=== PATIENT | female | born 1975 | race Caucasian/White ===

== ENCOUNTER → 2017-01-05 | Outpatient (CLI) | payer BC ==
--- NOTE | 2017-01-05 16:43 | KCIC ---
Bilateral digital screening mammograms with CAD: HISTORY Routine screening COMPARISON Comparison is made to previous examinations dated 01/17/2014 and 02/28/2009. FINDINGS Breast density category B. The skin and nipples show no abnormalities. No abnormal lymph nodes are seen in the axilla. The breast parenchyma shows scattered fibroglandular density with some asymmetric tissue in the upper-outer quadrant of the right breast. This is unchanged. There are no new dominant masses, suspicious calcifications or architectural distortions. IMPRESSION No evidence of malignancy. Recommend routine annual mammographic screening. This study was interpreted with the benefit of Computerized Aided Detection (CAD). Mammography is not 100% sensitive in detecting breast cancer. Therefore, a self breast exam and a clinical breast exam are very important. A negative mammogram does not negate a clinically suspicious finding and should not result in a delay in biopsying a clinically suspicious abnormality. BI-RADS category 2: Benign. This patient's information has been entered into a reminder system for the patient to be notified with the results of this examination and a target date for her next mammograms. Electronically signed by: Ursula Fleming MD (Jan 05, 2017 16:42:31)
== END | disposition home or self-care (01) ==
LOC: KCIC MAMMO 14:50
PROVIDERS: ATTEND Obstetrics & Gynecology
DX: Z12.31 Encounter for screening mammogram for malignant neoplasm of breast (principal)
CPT/HCPCS: G0202; 77067

== ENCOUNTER → 2018-04-21 | Outpatient (CLI) | payer BC, OTHER ==
--- NOTE | 2018-04-21 17:14 | KCIC ---
Bilateral digital screening mammograms with 3-D tomosynthesis: Reason for examination: Routine screening. Comparison is made to previous studies dated 01/05/2017 and 01/17/2014 Bilateral mammograms in CC and oblique projections were obtained with 2-D imaging and 3-D tomosynthesis imaging on a Siemens Inspiration unit and reviewed on the workstation. Interpretation was made with the benefit of CAD. The skin and nipples show no abnormalities. No abnormal axillary lymph nodes are seen. The breast parenchyma shows scattered fatty and fibroglandular density. (Breast density: Category B.) There continues to be some asymmetric parenchyma in the upper outer quadrant of the right breast. Centrally in the left breast however, there appears to be a new parenchymal density or architectural distortion. Further evaluation with coned compression views in CC and lateral projections and left breast ultrasound are recommended. There are no other dominant masses, suspicious calcifications or architectural distortion. Impression: Small parenchymal density with architectural distortion seen centrally in the left breast. Recommend cone compression views and ultrasound for further evaluation. BI-RAD Category 0: Incomplete. Needs additional imaging evaluation. "Our facility is accredited by the [employer] Mammography [employer]." This patient's information has been entered into a reminder system for the patient to be notified with the results of her examination and a target date for the next mammogram. Electronically signed by: Marisol Fleming MD (04/21/2018 5:10 PM) [id number]
== END | disposition home or self-care (01) ==
LOC: KCIC MAMMO 14:46
PROVIDERS: ATTEND Obstetrics & Gynecology
DX: Z12.31 Encounter for screening mammogram for malignant neoplasm of breast (principal)
CPT/HCPCS: 77063; 77067

== ENCOUNTER → 2018-05-05 | Outpatient (CLI) | payer OTHER ==
--- NOTE | 2018-05-05 16:57 | KCIC ---
Left breast diagnostic digital mammograms: Reason for examination: Parenchymal asymmetry. Comparison is made to previous study dated 04/21/2018. Coned compression views were obtained in CC and oblique projections. The area of parenchymal asymmetry does not appear to persist and appears to have represented some superimposed tissues. IMPRESSION: No suspicious abnormalities with additional views. Ultrasound to follow. BI-RADS Category 0: Incomplete. Needs additional imaging evaluation. Left breast ultrasound: Ultrasound examination was performed in the area of mammographic concern and at the left axilla. No discrete cystic or solid nodules or architectural distortion is seen. No abnormal appearing lymph nodes are seen in the left axilla. IMPRESSION: No abnormality seen in the left breast sonographically. Recommend routine mammographic follow-up. BI-RADS Category 2: Benign. "Our facility is accredited by the [employer] Mammography [employer]." This patient's information has been entered into a reminder system for the patient to be notified with the results of her examination and a target date for the next mammogram. Electronically signed by: Marisol Fleming MD (05/05/2018 4:54 PM) [id number]
--- NOTE | 2018-05-05 16:57 | KCIC ---
Left breast diagnostic digital mammograms: Reason for examination: Parenchymal asymmetry. Comparison is made to previous study dated 04/21/2018. Coned compression views were obtained in CC and oblique projections. The area of parenchymal asymmetry does not appear to persist and appears to have represented some superimposed tissues. IMPRESSION: No suspicious abnormalities with additional views. Ultrasound to follow. BI-RADS Category 0: Incomplete. Needs additional imaging evaluation. Left breast ultrasound: Ultrasound examination was performed in the area of mammographic concern and at the left axilla. No discrete cystic or solid nodules or architectural distortion is seen. No abnormal appearing lymph nodes are seen in the left axilla. IMPRESSION: No abnormality seen in the left breast sonographically. Recommend routine mammographic follow-up. BI-RADS Category 2: Benign. "Our facility is accredited by the [employer] Mammography [employer]." This patient's information has been entered into a reminder system for the patient to be notified with the results of her examination and a target date for the next mammogram. Electronically signed by: Marisol Fleming MD (05/05/2018 4:54 PM) [id number]
== END | disposition home or self-care (01) ==
LOC: KCIC MAMMO 12:36
PROVIDERS: ATTEND Obstetrics & Gynecology
DX: R92.8 Other abnormal and inconclusive findings on diagnostic imaging of breast (principal)
CPT/HCPCS: 76641; 77065

== ENCOUNTER → 2021-01-29 | Outpatient (CLI) | payer OTHER ==
--- NOTE | 2021-01-29 17:48 | KCIC ---
Bilateral digital screening mammograms with 3-D tomosynthesis: Reason for examination: Routine screening. Comparison is made to previous studies dated back to 01/17/2014. Bilateral mammograms in CC and oblique projections were obtained with 2-D imaging and 3-D tomosynthes is imaging on a Siemens Inspiration unit and reviewed on the workstation. Interpretation was made wit h the benefit of CAD. The skin and nipples show no abnormalities. No abnormal axillary lymph nodes are seen. The breast par enchyma shows scattered fatty and fibroglandular density. (Breast density: Category B.) There is a sm all parenchymal asymmetry in the left breast seen only on oblique view with no CC correlate which aleksandr ears to represent some superimposed tissue. There are no new dominant masses, suspicious calcificatio ns or architectural distortion. Impression: No evidence of malignancy. Recommend routine screening. BI-RAD Category 2: Benign. "Our facility is accredited by the [employer] Mammography [employer]." This patient's information has been entered into a reminder system for the patient to be notified wit h the results of her examination and a target date for the next mammogram. Electronically signed by: Marisol Fleming MD (01/29/2021 5:46 PM) [id number]
== END ==
LOC: KCIC MAMMO 15:41
PROVIDERS: ATTEND Obstetrics & Gynecology
DX: Z12.31 Encounter for screening mammogram for malignant neoplasm of breast (principal)
CPT/HCPCS: 77063; 77067